=== PATIENT | male | born 1970 | race African-American/Black ===

== ENCOUNTER 2018-05-23 04:57 | Emergency (ER) | payer OTHER ==
[~2018-05-23] VITALS: Ht 185.4 cm; Wt 109.8 kg
[2018-05-23] MEDS ORDERED: IV NORMAL SALINE 1000 ML BAG IV ONE (05:15)
[2018-05-23] MEDS ORDERED: ONDANSETRON 4 MG/2 ML VIAL IV ONE (05:15)
[2018-05-23 05:23] LABS: BASOPHILS % (AUTO) 0.4 % (0.0-2.0); EOSINOPHILS % (AUTO) 0.8 % (0.0-7.0); HEMATOCRIT 32.1 % (36.7-47.1); HEMOGLOBIN 10.9 g/dL (12.5-16.3); LYMPHOCYTES # (AUTO) 1.9 K/uL (20.0-40.0); MEAN CORPUSCULAR HEMOGLOBIN 31.7 uug (23.8-33.4); MEAN CORPUSCULAR HGB CONC 34 g/dL (32.5-36.3); MEAN CORPUSCULAR VOLUME 93.4 fL (73.0-96.2); MONOCYTES % (AUTO) 1.1 % (0.0-11.0); NEUTROPHILS # (AUTO) 0.8 K/uL (1.8-8.9); NEUTROPHILS % (AUTO) 29.7 % (38.5-71.5); PLATELET COUNT (AUTO) 148 K/uL (152-348); RED BLOOD CELL COUNT(AUTO) 3.44 MIL/uL (4.06-5.63); WHITE BLOOD COUNT (AUTO) 2.8 K/uL (3.6-10.2)
[2018-05-23 05:32] LABS: BILIRUBIN,DIRECT 0.1 mg/dL (0.0-0.2); BILIRUBIN,TOTAL 0.4 mg/dL (0.2-1.0); CREATININE 1.2 mg/dL (0.6-1.3); POTASSIUM 3.5 mmol/L (3.5-5.1); TOTAL PROTEIN, SERUM 7.5 g/dL (6.4-8.2)
[2018-05-23 05:51] LABS: EOSINOPHILS % (MANUAL) 1 % (0-8); LYMPHOCYTES % (MANUAL) 56 % (20-40); MONOCYTES % (MANUAL) 2 % (2-10); NEUTROPHILS % (MANUAL) 28 % (42-75)
[2018-05-23] MEDS ORDERED: ONDANSETRON 4 MG/2 ML VIAL ONE (06:08)
[2018-05-23 07:47] VITALS: BP 120/64
--- NOTE | 2018-05-23 07:49 | NUR ---
IV removed. Catheter intact and site benign. Pressure and 4x4 gauze applied to site. No bleeding noted.Patient discharged to home in stable conditon. Written and verbal after care instructions given. Patient verbalizes understanding of instructions.
== END 2018-05-23 07:23 | disposition home or self-care (01) ==
LOC: ER 05:03
DX: A08.4 Viral intestinal infection, unspecified (principal)
CPT/HCPCS: 36415; 80048; 80076; 83690; 84484; 85025; 96361; 96374; 99284; J2405; 70030-TC; A4663; J7030

== ENCOUNTER 2018-05-26 12:54 | Emergency (ER) | payer OTHER ==
[~2018-05-26] VITALS: Ht 188 cm; Wt 109.8 kg
[2018-05-26] MEDS: IV NORMAL SALINE 1000 ML BAG IV ONE ×2 (13:00→13:06)
[2018-05-26] MEDS ORDERED: HYDROMORPHONE 1 MG/1 ML DISP.SYRIN ONE (13:04)
[2018-05-26] MEDS ORDERED: ONDANSETRON 4 MG/2 ML VIAL ONE (13:04)
[2018-05-26] MEDS: ONDANSETRON 4 MG/2 ML VIAL IV ONE (13:05)
[2018-05-26] MEDS: HYDROMORPHONE 1 MG/1 ML DISP.SYRIN IV ONE (13:09)
[2018-05-26 13:19] LABS: EOSINOPHILS % (AUTO) 0.9 % (0.0-7.0); HEMATOCRIT 34.4 % (36.7-47.1); HEMOGLOBIN 11.7 g/dL (12.5-16.3); LYMPHOCYTES # (AUTO) 1.9 K/uL (20.0-40.0); LYMPHOCYTES % (AUTO) 65.7 % (20.5-51.5); MEAN CORPUSCULAR HEMOGLOBIN 31.6 uug (23.8-33.4); MEAN CORPUSCULAR HGB CONC 34 g/dL (32.5-36.3); MEAN CORPUSCULAR VOLUME 93.1 fL (73.0-96.2); MONOCYTES % (AUTO) 0.9 % (0.0-11.0); NEUTROPHILS # (AUTO) 0.9 K/uL (1.8-8.9); NEUTROPHILS % (AUTO) 31.5 % (38.5-71.5); PLATELET COUNT (AUTO) 124 K/uL (152-348); WHITE BLOOD COUNT (AUTO) 2.9 K/uL (3.6-10.2)
[2018-05-26 13:26] LABS: CREATININE 1.2 mg/dL (0.6-1.3); POTASSIUM 3.4 mmol/L (3.5-5.1)
[2018-05-26 13:33] LABS: BILIRUBIN,DIRECT 0.1 mg/dL (0.0-0.2); BILIRUBIN,TOTAL 0.5 mg/dL (0.2-1.0); TOTAL PROTEIN, SERUM 7.5 g/dL (6.4-8.2)
[2018-05-26 13:35] LABS: MONOCYTES % (MANUAL) 1 % (2-10)
[2018-05-26 13:36] LABS: LYMPHOCYTES % (MANUAL) 60 % (20-40); NEUTROPHILS % (MANUAL) 39 % (42-75)
[2018-05-26] MEDS ORDERED: MECLIZINE HCL 25 MG TABLET ONE (13:52)
[2018-05-26] MEDS: MECLIZINE HCL 25 MG TABLET PO ONE (13:53)
[2018-05-26 14:28] VITALS: BP 145/74
--- NOTE | 2018-05-26 14:32 | NUR ---
Patient discharged to home in stable conditon. Written and verbal after care instructions given. Patient verbalizes understanding of instructions.
== END 2018-05-26 14:35 | disposition home or self-care (01) ==
LOC: ER 12:54
DX: H83.09 Labyrinthitis, unspecified ear (principal)
CPT/HCPCS: 36415; 80048; 80076; 83690; 84484; 85025; 85730; 96361; 96374; 99284; J2405; 70030-TC; A4663; J1170; J7030; J8597